=== PATIENT | male | born 1995 ===

== ENCOUNTER 2016-10-04 03:25 | Observation (INO) | payer MEDICAID ==
[2016-10-04 03:59] VITALS: RESP 17
[2016-10-04 04:02] VITALS: BP 130/58; PULSE 93; TEMP 98.2; O2SAT 98
[2016-10-04] MEDS ORDERED: Sodium Chloride 0.9% 1,000 ML IV STA (04:02)
--- NOTE | 2016-10-04 04:32 | ED PDOC ---
HPI: Abdomen Time Seen by Provider: 10/04/16 03:49 Chief Complaint (Nursing): Abdominal Pain Chief Complaint (Provider): Abdominal pain, diarrhea History Per: Patient History/Exam Limitations: no limitations Onset/Duration Of Symptoms: Hrs (10) Outside of [place] travel?: No Current Symptoms Are (Timing): Still Present Context: Food Severity: Moderate Location Of Pain/Discomfort: Diffuse Quality Of Discomfort: Cramping, "Pain" Associated Symptoms: Nausea, Diarrhea. denies: Vomiting Additional History Per: Patient Additional Complaint(s): The pt is a 21yo male, presents to the ED for evaluation of abdominal pain and diarrhea for the past 10 hours. Pt reports multiple episodes of loose, watery, non-bloody bowel movements. Pt reports his symptoms may have been provoked by quesadillas he had eaten during the day. Pt reports his abdominal pain as crampy with associated nausea but no vomiting. At present, he offers no additional medical complaints. Past Medical History Reviewed: Historical Data, Nursing Documentation, Vital Signs Vital Signs: Last Vital Signs Temp 98.2 F 10/04/16 03:43 Pulse 93 H 10/04/16 03:43 Resp 17 10/04/16 03:43 BP 130/58 L 10/04/16 03:43 Pulse Ox 98 10/04/16 10:56 - Medical History PMH: No Chronic Diseases - Surgical History Surgical History: No Surg Hx - Family History Family History: States: Unknown Family Hx - Living Arrangements Living Arrangements: With Family - Home Medications Home Medications: Ambulatory Orders Medication Instructions Recorded Loperamide [Imodium] 2 mg PO DAILY #4 cap 10/04/16 Ondansetron ODT [Zofran ODT] 4 mg PO Q8 PRN #12 odt 10/04/16 - Allergies Allergies/Adverse Reactions: Allergies Allergy/AdvReac Type Severity Reaction Status Date / Time No Known Allergies Allergy Verified 10/04/16 03:47 Review of Systems ROS Statement: Except As Marked, All Systems Reviewed And Found Negative Gastrointestinal: Positive for: Nausea, Abdominal Pain. Negative for: Vomiting , Diarrhea Physical Exam - Reviewed Nursing Documentation Reviewed: Yes Vital Signs Reviewed: Yes - Physical Exam Appears: Positive for: Well, Non-toxic, No Acute Distress Head Exam: Positive for: ATRAUMATIC, NORMAL INSPECTION, NORMOCEPHALIC Skin: Positive for: Normal Color, Warm, DRY Eye Exam: Positive for: Normal appearance Neck: Positive for: Normal, Supple Cardiovascular/Chest: Positive for: Regular Rate, Rhythm Respiratory: Negative for: Respiratory Distress Gastrointestinal/Abdominal: Positive for: Soft, Tenderness (mild diffuse tenderness) Neurologic/Psych: Positive for: Alert, Oriented - Laboratory Results Result Diagrams: 10/04/16 04:49 10/04/16 04:49 - ECG O2 Sat by Pulse Oximetry: 98 Medical Decision Making Medical Decision Making: Time: 035 Impression: Abdominal pain with diarrhea Plan: -- Bentyl -- IV Fluids -- Zofran -- CBC -- CMP -- Lipase --Reassess Time: 0618 Pt reports he is still having pain. Ordered CT AP for further study. Pt placed under obs while waiting for CT, consult obs section for further notes. Scribe Attestation: Documented by Leslie Dove acting as a scribe for Augie Avila MD. Provider Attestation: All medical record entries made by the Scribe were at my direction and personally dictated by me. I have reviewed the chart and agree that the record accurately reflects my personal performance of the history, physical exam, medical decision making, and the department course for this patient. I have also personally directed, reviewed, and agree with the discharge instructions and disposition. ED OBSERVATION Date of observation admission: 10/04/16 Time of observation admission: 06:18 - Observation admission statement Patient is being placed in observation because:: pt w/ abdominal pain. waiting ct ap - Goals of Observation Goals of observation are:: awaiting ct results - Progress Note Progress Note: 10/04/16 07:00 Pt to be endorsed to Dr. King pending CT results. Disposition - Clinical Impression Clinical Impression: Enteritis - Patient ED Disposition Is Patient to be Admitted: Transfer of Care Counseled Patient/Family Regarding: Studies Performed - Disposition Disposition: Transfer of Care Disposition Time: 06:18 Condition: GOOD Patient Signed Over To: Linda Simms Handoff Comments: pending ct ap
[2016-10-04 04:57] LABS: BASO % 0.2 % (0.0-2.0); EOS # 0.1 K/uL (0.0-0.7); EOS % 0.6 % (0.0-4.0); HEMATOCRIT 47.5 % (35.0-51.0); LYMPH # 1.1 K/uL (1.0-4.3); LYMPH % 8.4 % (20.0-40.0); MEAN CORPUSCULAR HEMOGLOBIN 30.2 pg (27.0-31.0); MEAN PLATELET VOLUME 8.9 fl (7.2-11.7); MONO # 0.7 K/uL (0.0-0.8); MONO % 5.8 % (0.0-10.0); NEUT # 10.8 K/uL (1.8-7.0); PLATELET COUNT 171 K/uL (130-400); RED CELL DISTRIBUTION WIDTH 12.3 % (11.5-14.5); WHITE BLOOD COUNT 12.7 K/uL (4.8-10.8)
[2016-10-04 05:07] LABS: CHLORIDE 102 mmol/L (98-107); SODIUM 141 mmol/l (132-148)
[2016-10-04 05:09] LABS: GFR AFRICAN-AMERICAN > 60
[2016-10-04 05:10] LABS: ALB/GLOB RATIO 1.3 (1.0-2.1); ALKALINE PHOSPHATASE 78 U/L (38-126); ALT/SGPT 35 U/L (21-72); AST/SGOT 29 U/L (17-59); BILIRUBIN,TOTAL 1.4 mg/dl (0.2-1.3); BLOOD UREA NITROGEN 17 mg/dl (9-20); CARBON DIOXIDE 25 mmol/L (22-30); GLUCOSE,RANDOM 99 mg/dL (75-110); LIPASE 57 U/L (23-300); TOTAL PROTEIN 8.2 G/DL (6.3-8.2)
[2016-10-04 05:11] LABS: CALCIUM 9.2 mg/dL (8.4-10.2)
[2016-10-04 06:12] LABS: NEUTROPHIL 86 % (42-75); REACTIVE LYMPHOCYTES 1 % (0-0); TOTAL CELLS COUNTED 100
[2016-10-04 06:16] LABS: LARGE PLATELETS PRESENT
[2016-10-04] MEDS ORDERED: Iohexol 240 (50 ml) PO ONE (06:18)
[2016-10-04] MEDS ORDERED: Iohexol 240 (50 ml) ONE (06:28)
--- NOTE | 2016-10-04 07:13 | ED PDOC ---
- Laboratory Results Result Diagrams: 10/04/16 04:49 10/04/16 04:49 - ECG O2 Sat by Pulse Oximetry: 98 (RA) Pulse Ox Interpretation: Normal - Progress Re-evaluation Time: 10:48 Condition: Re-examined, Improved Medical Decision Making Medical Decision Making: Time: 7:00 --Patient is pending CT abdomen results, reassessment and final disposition. Time: 10:17 --Abdomen/Pelvis CT FINDINGS: LOWER THORAX: Unremarkable. LIVER: Unremarkable. No gross lesion or ductal dilatation. GALLBLADDER AND BILE DUCTS: Unremarkable. PANCREAS: Unremarkable. No gross lesion or ductal dilatation. SPLEEN: Unremarkable. ADRENALS: Unremarkable. No mass. KIDNEYS AND URETERS: Unremarkable. No hydronephrosis. No solid mass. VASCULATURE: Unremarkable. No aortic aneurysm. BOWEL: The wall of the small bowel is mildly edematous likely enteritis without mechanical obstruction. APPENDIX: Normal appendix. PERITONEUM: Unremarkable. No free fluid. No free air. LYMPH NODES: Unremarkable. No enlarged lymph nodes. BLADDER: Unremarkable. REPRODUCTIVE: Unremarkable. BONES: No acute fracture. OTHER FINDINGS: None. IMPRESSION: Findings consistent with enteritis. No evidence of bowel obstruction. No abnormalities to suggest acute appendicitis. No right lower quadrant inflammatory processes identified. Time: 10:48 Upon provider reevaluation patient is feeling better, is medically stable, and requires no further treatment in the ED at this time. Patient will be discharged home with Rx for Immodium 2mg. Counseling was provided and all questions were answered regarding diagnosis and need for follow up with referred clinics. There is agreement to discharge plan. Return if symptoms persist or worsen. Clinical Impression: Enteritis Disposition Doctor Will See Patient In The: Office Counseled Patient/Family Regarding: Studies Performed, Diagnosis, Need For Followup - Clinical Impression Clinical Impression: Enteritis - POA Present On Arrival: None - Disposition Disposition: Routine/Home Disposition Time: 10:48 Condition: GOOD
[2016-10-04 08:27] LABS: RBC URINE < 1 /hpf (0-3); URINE BILIRUBIN NEGATIVE (NEGATIVE); URINE BLOOD NEGATIVE (NEGATIVE); URINE COLOR YELLOW (YELLOW); URINE GLUCOSE (UA) NEG (Normal); URINE KETONE 20 mg/dL (NEGATIVE); URINE LEUKOCYTE ESTERASE NEG Leu/uL (Negative); URINE PROTEIN NEGATIVE (NEGATIVE); URINE UROBILINOGEN 0.2-1.0 mg/dL (0.2-1.0); WBC URINE < 1 /hpf (0-5)
[2016-10-04] MEDS ORDERED: Iodixanol 320 MG/ML 100 ML BOTTLE IV ONE (08:58)
[2016-10-04] MEDS ORDERED: Sodium Chloride 0.9% 50 ML IV ONE (08:59)
--- NOTE | 2016-10-04 10:19 | CT ---
PROCEDURE: CT Abdomen and Pelvis with contrast HISTORY: Abdominal pain, diarrhea COMPARISON: None. TECHNIQUE: Contrast dose: 100 cc Visipaque 320. Radiation dose: Total exam DLP = mGy-cm. This CT exam was performed using one or more of the following dose reduction techniques: Automated exposure control, adjustment of the mA and/or kV according to patient size, and/or use of iterative reconstruction technique. FINDINGS: LOWER THORAX: Unremarkable. LIVER: Unremarkable. No gross lesion or ductal dilatation. GALLBLADDER AND BILE DUCTS: Unremarkable. PANCREAS: Unremarkable. No gross lesion or ductal dilatation. SPLEEN: Unremarkable. ADRENALS: Unremarkable. No mass. KIDNEYS AND URETERS: Unremarkable. No hydronephrosis. No solid mass. VASCULATURE: Unremarkable. No aortic aneurysm. BOWEL: The wall of the small bowel is mildly edematous likely enteritis without mechanical obstruction. APPENDIX: Normal appendix. PERITONEUM: Unremarkable. No free fluid. No free air. LYMPH NODES: Unremarkable. No enlarged lymph nodes. BLADDER: Unremarkable. REPRODUCTIVE: Unremarkable. BONES: No acute fracture. OTHER FINDINGS: None. IMPRESSION: Findings consistent with enteritis. No evidence of bowel obstruction. No abnormalities to suggest acute appendicitis. No right lower quadrant inflammatory processes identified.
== END 2016-10-04 11:35 | disposition home or self-care (01) ==
LOC: H.ER 03:25 → H.EROBSV 06:19
PROVIDERS: ADMIT Emergency Medicine; ATTEND Emergency Medicine
DX: K52.9 Noninfective gastroenteritis and colitis, unspecified (principal)

== ENCOUNTER 2016-10-15 20:39 | Emergency (ER) | payer MEDICAID ==
[2016-10-15 20:49] VITALS: BP 112/64; PULSE 79; RESP 16; TEMP 98.3; O2SAT 99
[2016-10-15 21:21] LABS: BASO # 0.1 K/uL (0.0-0.2); BASO % 0.6 % (0.0-2.0); EOS # 0.1 K/uL (0.0-0.7); EOS % 1.3 % (0.0-4.0); LYMPH # 2.7 K/uL (1.0-4.3); LYMPH % 29.9 % (20.0-40.0); MEAN CELL VOLUME 89.4 fl (80.0-94.0); MEAN CORPUSCULAR HEMOGLOBIN 30.5 pg (27.0-31.0); MEAN CORPUSCULAR HGB CONC 34.1 g/dL (33.0-37.0); MEAN PLATELET VOLUME 8.9 fl (7.2-11.7); MONO # 0.6 K/uL (0.0-0.8); MONO % 6.9 % (0.0-10.0); NEUT # 5.5 K/uL (1.8-7.0); NEUT % 61.3 % (50.0-75.0); NRBC % 0.1 % (0.0-0.0); RED CELL DISTRIBUTION WIDTH 12.1 % (11.5-14.5)
--- NOTE | 2016-10-15 21:25 | ED PDOC ---
Upper Extremity Pain/Injury Time Seen by Provider: 10/15/16 20:51 Chief Complaint (Nursing): Finger,Hand,&Wrist Chief Complaint (Provider): bilateral hand numbness History Per: Patient History/Exam Limitations: no limitations Onset/Duration Of Symptoms: Days (x 4) Current Symptoms Are (Timing): Still Present Additional Complaint(s): Gregory Singleton is a 21 year old male, with no previous medical history, who presents to the ED with complaints of bilateral hand numbness intermittently ongoing for the past 4 days after a night of heavy alcohol ingestion. Patient denies any weakness, headache, dizziness, changes in gate or history of diabetes. PMD: none provided Past Medical History Reviewed: Historical Data, Nursing Documentation, Vital Signs Vital Signs: Last Vital Signs Temp 98.3 F 10/15/16 20:46 Pulse 79 10/15/16 20:46 Resp 16 10/15/16 20:46 BP 112/64 10/15/16 20:46 Pulse Ox 99 10/15/16 20:46 - Medical History PMH: No Chronic Diseases - Family History Family History: States: Unknown Family Hx - Social History Current smoker - smoking cessation education provided: Yes Alcohol: Social Drugs: Cannabis - Home Medications Home Medications: Ambulatory Orders Medication Instructions Recorded Loperamide [Imodium] 2 mg PO DAILY #4 cap 10/04/16 Ondansetron ODT [Zofran ODT] 4 mg PO Q8 PRN #12 odt 10/04/16 - Allergies Allergies/Adverse Reactions: Allergies Allergy/AdvReac Type Severity Reaction Status Date / Time No Known Allergies Allergy Verified 10/15/16 20:46 Review of Systems ROS Statement: Except As Marked, All Systems Reviewed And Found Negative Neurological: Positive for: Numbness (bilateral hands ). Negative for: Weakness , Headache, Dizziness, Other (changes in gait ) Physical Exam - Reviewed Nursing Documentation Reviewed: Yes Vital Signs Reviewed: Yes - Physical Exam Appears: Positive for: Well, Non-toxic, No Acute Distress Head Exam: Positive for: ATRAUMATIC, NORMAL INSPECTION, NORMOCEPHALIC Skin: Positive for: Normal Color, Warm, DRY Eye Exam: Positive for: EOMI, Normal appearance, PERRL ENT: Positive for: Normal ENT Inspection Neck: Positive for: Normal, Painless ROM Cardiovascular/Chest: Positive for: Regular Rate, Rhythm Respiratory: Positive for: CNT, Normal Breath Sounds Gastrointestinal/Abdominal: Positive for: Normal Exam, Bowel Sounds, Soft Back: Positive for: Normal Inspection Extremity: Positive for: Normal ROM, Capillary Refill (< 2 seconds ). Negative for: Tenderness, Pedal Edema, Calf Tenderness, Deformity, Swelling Neurologic/Psych: Positive for: Alert, stenciler II-XII (intact ), Oriented, Gait ( steady ). Negative for: Motor/Sensory Deficits, Aphasia, Facial Droop - Laboratory Results Result Diagrams: 10/15/16 21:17 10/15/16 21:17 - ECG O2 Sat by Pulse Oximetry: 99 Medical Decision Making Medical Decision Making: Initial Impression: parasthesia r/o intracranial process Initial Plan: * CT head w/o contrast * labs * reevaluation 21:[address] FINDINGS: Brain: No hemorrhage. No significant white matter disease. No edema. Ventricles: No hydrocephalus. Bones: Skull is intact. Sinuses: No acute sinusitis. Mastoid air cells: No mastoid effusion. IMPRESSION: No CT evidence of acute intracranial abnormality. Correlate clinically. Followup as warranted. Given that nature of pts symptoms does not seem likely to be central cause. no focal neurologic deficits. labs and CT head normal pt instructed to follow up with pcp/neurologist (Referral given) Scribe Attestation: Documented by Becky Scales, acting as a scribe for Vera Whitfield MD Provider Scribe Attestation: All medical record entries made by the Scribe were at my direction and personally dictated by me. I have reviewed the chart and agree that the record accurately reflects my personal performance of the history, physical exam, medical decision making, and the department course for this patient. I have also personally directed, reviewed, and agree with the discharge instructions and disposition. Disposition - Clinical Impression Clinical Impression: Hand paresthesia - Patient ED Disposition Is Patient to be Admitted: No Counseled Patient/Family Regarding: Studies Performed, Diagnosis, Need For Followup - Disposition Referrals: [facility] [Outside] Deniz Edwards MD [Medical Doctor] - Disposition: Routine/Home Disposition Time: 23:53 Condition: GOOD Additional Instructions: follow up with your primary doctor in 1-2 days. also follow up with neurology for further testing. referral provided. return to the ED with any worsening or concerning symptoms. Instructions: Paresthesia (ED)
[2016-10-15 21:31] LABS: ALB/GLOB RATIO 1.2 (1.0-2.1); ALKALINE PHOSPHATASE 74 U/L (38-126); ALT/SGPT 37 U/L (21-72); AST/SGOT 29 U/L (17-59); BILIRUBIN,TOTAL 0.9 mg/dl (0.2-1.3); BLOOD UREA NITROGEN 19 mg/dl (9-20); CALCIUM 9.2 mg/dL (8.4-10.2); CARBON DIOXIDE 23 mmol/L (22-30); CHLORIDE 103 mmol/L (98-107); GFR AFRICAN-AMERICAN > 60; GLUCOSE,RANDOM 109 mg/dL (75-110); SODIUM 139 mmol/l (132-148); TOTAL PROTEIN 7.8 G/DL (6.3-8.2)
--- NOTE | 2016-10-15 21:45 | CT ---
EXAM: CT Head Without Intravenous Contrast CLINICAL HISTORY: 21 years old, male; Signs and symptoms; Other: Bilat. Hand numbness; Additional info: Parasthesias in b ilateral hands TECHNIQUE: Axial computed tomography images of the head/brain without intravenous contrast. This CT exam was performed using one or more of the following dose reduction techniques: automated exposure control, adjustment of the mA and/or kV according to patient size, and/or use of iterative reconstruction technique. Coronal and sagittal reformatted images were created and reviewed. COMPARISON: No relevant prior studies available. FINDINGS: Brain: No hemorrhage. No significant white matter disease. No edema. Ventricles: No hydrocephalus. Bones: Skull is intact. Sinuses: No acute sinusitis. Mastoid air cells: No mastoid effusion. IMPRESSION: No CT evidence of acute intracranial abnormality. Correlate clinically. Followup as warranted.
== END 2016-10-15 22:45 | disposition home or self-care (01) ==
LOC: H.ER 20:39
DX: R20.2 Paresthesia of skin (principal); F17.200 Nicotine dependence, unspecified, uncomplicated

== ENCOUNTER 2017-05-16 07:19 | Emergency (ER) | payer MEDICAID ==
[2017-05-16 07:24] VITALS: BMI 23.3
[2017-05-16] MEDS ORDERED: Iohexol 240 (50 ml) PO STA (07:57)
[2017-05-16] MEDS ORDERED: Sodium Chloride 0.9% 1,000 ML IV STA (07:58)
[2017-05-16] MEDS ORDERED: Iohexol 240 (50 ml) ONE (08:10)
[2017-05-16] MEDS ORDERED: Morphine 4 MG/ML VIAL ONE (08:11)
[2017-05-16 08:13] LABS: BASO % 0.2 % (0.0-2.0); EOS % 0.4 % (0.0-4.0); HEMATOCRIT 47.6 % (35.0-51.0); LYMPH # 0.8 K/uL (1.0-4.3); LYMPH % 7.1 % (20.0-40.0); MEAN CELL VOLUME 88.8 fl (80.0-94.0); MEAN CORPUSCULAR HEMOGLOBIN 31.3 pg (27.0-31.0); MEAN CORPUSCULAR HGB CONC 35.2 g/dL (33.0-37.0); MEAN PLATELET VOLUME 8.7 fl (7.2-11.7); MONO # 0.4 K/uL (0.0-0.8); MONO % 3.9 % (0.0-10.0); NEUT # 9.6 K/uL (1.8-7.0); NEUT % 88.4 % (50.0-75.0); PLATELET COUNT 200 K/uL (130-400); RED CELL DISTRIBUTION WIDTH 12.6 % (11.5-14.5); WHITE BLOOD COUNT 10.8 K/uL (4.8-10.8)
--- NOTE | 2017-05-16 08:15 | ED PDOC ---
HPI: Abdomen Time Seen by Provider: 05/16/17 07:28 Chief Complaint (Nursing): Abdominal Pain Chief Complaint (Provider): Abdominal Pain History Per: Patient History/Exam Limitations: no limitations Onset/Duration Of Symptoms: Days (x2 days) Current Symptoms Are (Timing): Still Present Additional Complaint(s): 21 y/o male presents to the ED complaining of vomiting, diarrhea and abdominal pain since yesterday. Patients notes a friend has similar symptoms. Patient states having fever but denies any genitourinary symptoms or any further medical complaints. Past Medical History Reviewed: Historical Data, Nursing Documentation, Vital Signs Vital Signs: Last Vital Signs Temp 98.4 F 05/16/17 13:02 Pulse 71 05/16/17 13:02 Resp 18 05/16/17 13:02 BP 101/76 05/16/17 13:02 Pulse Ox 98 05/16/17 13:02 - Surgical History Surgical History: No Surg Hx - Family History Family History: States: Unknown Family Hx - Social History Current smoker - smoking cessation education provided: Yes (Some days smoker) Alcohol: Social Drugs: Other (Marijuana) - Home Medications Home Medications: Ambulatory Orders Medication Instructions Recorded Dicyclomine [Bentyl] 20 mg PO QID PRN #10 tab 05/16/17 Ondansetron ODT [Zofran ODT] 4 mg PO Q8H PRN #20 odt 05/16/17 - Allergies Allergies/Adverse Reactions: Allergies Allergy/AdvReac Type Severity Reaction Status Date / Time No Known Allergies Allergy Verified 05/16/17 07:37 Review of Systems ROS Statement: Except As Marked, All Systems Reviewed And Found Negative (As per HPI, otherwise negative) Gastrointestinal: Positive for: Nausea, Vomiting, Abdominal Pain Genitourinary Male: Negative for: Dysuria, Frequency, Incontinence, Hematuria Physical Exam - Reviewed Nursing Documentation Reviewed: Yes Vital Signs Reviewed: Yes - Physical Exam Appears: Positive for: Non-toxic, No Acute Distress Head Exam: Positive for: ATRAUMATIC, NORMOCEPHALIC Skin: Positive for: Normal Color, Warm, Dry Eye Exam: Positive for: EOMI, Normal appearance, PERRL Neck: Positive for: Normal, Painless ROM, Supple Cardiovascular/Chest: Positive for: Regular Rate, Rhythm. Negative for: Murmur Respiratory: Positive for: Normal Breath Sounds. Negative for: Respiratory Distress Gastrointestinal/Abdominal: Positive for: Tenderness. Negative for: Guarding, Rebound (generalized abdominal tenderness in the righ lower quadrant) Back: Positive for: Normal Inspection. Negative for: L CVA Tenderness, R CVA Tenderness, Vertebral Tenderness Extremity: Positive for: Normal ROM. Negative for: Pedal Edema, Deformity Neurologic/Psych: Positive for: Alert, Oriented (x3). Negative for: Motor/ Sensory Deficits - Laboratory Results Result Diagrams: 05/16/17 07:52 05/16/17 07:52 - ECG O2 Sat by Pulse Oximetry: 97 (RA) Pulse Ox Interpretation: Normal Medical Decision Making Medical Decision Making: Time: 07:58 Initial Impression: Appendicitis, Gastroenteritis Plan: CT Abd pelvis PO w/ IV contrast CMP Lipase Urine dipstick CBC w/ diff PTT Prothrombin Time Iohexol 50ml PO Morphine 2mg IV Sodium Chloride, 1L, IV Ondansetron 4mg, IV Blood Culture Urine culture Influenza AB Urinalysis Reevaluation Time: 07:58 Influenza AB - negative Time: 11:54 Abdomen/Pelvis CT FINDINGS: LOWER THORAX: Unremarkable. LIVER: Unremarkable. No gross lesion or ductal dilatation. GALLBLADDER AND BILE DUCTS: Unremarkable. PANCREAS: Unremarkable. No gross lesion or ductal dilatation. SPLEEN: Unremarkable. ADRENALS: Unremarkable. No mass. KIDNEYS AND URETERS: Unremarkable. No hydronephrosis. No solid mass. VASCULATURE: Unremarkable. No aortic aneurysm. BOWEL: Unremarkable. No obstruction. No gross mural thickening. APPENDIX: Normal appendix. PERITONEUM: Unremarkable. No free fluid. No free air. LYMPH NODES: Unremarkable. No enlarged lymph nodes. BLADDER: Unremarkable. REPRODUCTIVE: Unremarkable. BONES: No acute fracture. OTHER FINDINGS: None. IMPRESSION: Unremarkable contrast enhanced CT of the abdomen and pelvis. Time: 12:30 Upon provider reevaluation patient is feeling better, is medically stable, and requires no further treatment in the ED at this time. Patient will be discharged home with Rx for Bentyl 20mg PO and Zofran ODT 4mg PO. Counseling was provided and all questions were answered regarding diagnosis and need for follow up with PMD. There is agreement to discharge plan. Return if symptoms persist or worsen. Clinical Impression: Gastroenteritis Scribe Attestation: Documented by Hina Larkin acting as a scribe for Becky Riojas MD. Scribe Attestation: All medical record entries made by the Scribe were at my direction and personally dictated by me. I have reviewed the chart and agree that the record accurately reflects my personal performance of the history, physical exam, medical decision making, and the department course for this patient. I have also personally directed, reviewed, and agree with the discharge instructions and disposition. Disposition - Clinical Impression Clinical Impression: Gastroenteritis - Disposition Referrals: Cristi Garland MD [Family Provider] - Disposition: Routine/Home Disposition Time: 12:30 Condition: STABLE Prescriptions: Dicyclomine [Bentyl] 20 mg PO QID PRN #10 tab PRN Reason: Pain, Moderate (4-7) Ondansetron ODT [Zofran ODT] 4 mg PO Q8H PRN #20 odt PRN Reason: Nausea/Vomiting Instructions: Gastroenteritis (ED) Forms: [employer] (Portuguese), [facility] School/Work Excuse
[2017-05-16 08:23] LABS: ALB/GLOB RATIO 1.3 (1.0-2.1); ALKALINE PHOSPHATASE 71 U/L (38-126); ALT/SGPT 42 U/L (21-72); AST/SGOT 29 U/L (17-59); BILIRUBIN,TOTAL 1.5 mg/dl (0.2-1.3); BLOOD UREA NITROGEN 16 mg/dl (9-20); CALCIUM 8.7 mg/dL (8.4-10.2); CARBON DIOXIDE 24 mmol/L (22-30); CHLORIDE 107 mmol/L (98-107); GFR AFRICAN-AMERICAN > 60; GLUCOSE,RANDOM 104 mg/dL (75-110); LIPASE 46 U/L (23-300); POTASSIUM 4.3 MMOL/L (3.6-5.0); SODIUM 141 mmol/l (132-148); TOTAL PROTEIN 7.9 G/DL (6.3-8.2)
[2017-05-16] MEDS ORDERED: Sodium Chloride 0.9% 50 ML IV ONE (10:46)
[2017-05-16] MEDS ORDERED: Iohexol 300 100 ML IJ ONE (10:46)
[2017-05-16 10:49] LABS: NEUTROPHIL 89 % (42-75); TOTAL CELLS COUNTED 100
[2017-05-16 11:28] LABS: RBC URINE 1 /hpf (0-3); URINE BILIRUBIN NEGATIVE (NEGATIVE); URINE BLOOD NEGATIVE (NEGATIVE); URINE COLOR YELLOW (YELLOW); URINE GLUCOSE (UA) NEG (Normal); URINE KETONE TRACE mg/dL (NEGATIVE); URINE LEUKOCYTE ESTERASE NEG Leu/uL (Negative); URINE PROTEIN NEGATIVE (NEGATIVE); URINE UROBILINOGEN 0.2-1.0 mg/dL (0.2-1.0); WBC URINE < 1 /hpf (0-5)
--- NOTE | 2017-05-16 11:56 | CT ---
PROCEDURE: CT Abdomen and Pelvis with contrast HISTORY: RLQ pain, v/d COMPARISON: None. TECHNIQUE: Contrast dose: Radiation dose: Total exam DLP = mGy-cm. This CT exam was performed using one or more of the following dose reduction techniques: Automated exposure control, adjustment of the mA and/or kV according to patient size, and/or use of iterative reconstruction technique. FINDINGS: LOWER THORAX: Unremarkable. LIVER: Unremarkable. No gross lesion or ductal dilatation. GALLBLADDER AND BILE DUCTS: Unremarkable. PANCREAS: Unremarkable. No gross lesion or ductal dilatation. SPLEEN: Unremarkable. ADRENALS: Unremarkable. No mass. KIDNEYS AND URETERS: Unremarkable. No hydronephrosis. No solid mass. VASCULATURE: Unremarkable. No aortic aneurysm. BOWEL: Unremarkable. No obstruction. No gross mural thickening. APPENDIX: Normal appendix. PERITONEUM: Unremarkable. No free fluid. No free air. LYMPH NODES: Unremarkable. No enlarged lymph nodes. BLADDER: Unremarkable. REPRODUCTIVE: Unremarkable. BONES: No acute fracture. OTHER FINDINGS: None. IMPRESSION: Unremarkable contrast enhanced CT of the abdomen and pelvis.
[2017-05-16 13:03] VITALS: BP 101/76; PULSE 71; RESP 18; TEMP 98.4
[2017-05-16 13:34] VITALS: O2SAT 97
== END 2017-05-16 13:04 | disposition home or self-care (01) ==
LOC: H.ER 07:19
DX: K52.9 Noninfective gastroenteritis and colitis, unspecified (principal)
CPT/HCPCS: 74177; 80053; 81003; 83690; 85025; 85610; 85730; 87040; 87086; 87804; 96360; 99283; J2405; J7040; Q9966; Q9967